=== PATIENT | male | born 1985 | race African-American/Black ===

== ENCOUNTER 2020-02-05 23:51 | Emergency (ER) | payer OTHER ==
[~2020-02-05] VITALS: Ht 177.8 cm; Wt 108.0 kg
[2020-02-06 00:14] VITALS: BP 120/93
[2020-02-06] MEDS ORDERED: FLUORESCEIN SODIUM 1MG/STRIP LEFTEYE ONE (00:30)
[2020-02-06] MEDS ORDERED: TETRACAINE 0.5% OPHTH DROPS 4ML LEFTEYE ONE (00:30)
== END 2020-02-06 02:00 | disposition home or self-care (01) ==
LOC: ER 23:51
DX: S05.92XA Unspecified injury of left eye and orbit, initial encounter (principal); W22.8XXA Striking against or struck by other objects, initial encounter; Y93.89 Activity, other specified; Y92.89 Other specified places as the place of occurrence of the external cause; Y99.8 Other external cause status
CPT/HCPCS: 99283